=== PATIENT | male | born 1980 | race Two or more races ===

== ENCOUNTER 2020-01-08 09:43 | Emergency (ER) | payer OTHER ==
[~2020-01-08] VITALS: Ht 162.6 cm; Wt 122.8 kg
[~2020-01-08 09:43] MED LIST: AMLO-150 PO; METO50TA82 PO
[2020-01-08 10:18] VITALS: BP 150/105
[2020-01-08] MEDS ORDERED: ACETAMINOPHEN 500 MG TABLET ONE (11:09)
--- NOTE | 2020-01-08 11:15 | NUR ---
pt hit foot on wall while barefoot at home with pain 4th and 5th digits and wound between toes. medicated for pain. pt foot soaking in soapy water
[2020-01-08] MEDS ORDERED: NEOSPORIN OINT. PKT 1 PACKET ONE (11:22)
[2020-01-08] MEDS ORDERED: ACETAMINOPHEN 500 MG TABLET PO ONE (11:30)
--- NOTE | 2020-01-08 11:45 | NUR ---
TECH CLEANED WOUNDS AND NEOSPORIN AND BANDAIDS APPLIED. ADDITIONALLY PROVIDED A BOOT. AMBULATED TO DISCHARGE WINDOW, STEADY GAIT
== END 2020-01-08 12:53 | disposition home or self-care (01) ==
LOC: ED 12:32
DX: S92.511A Displaced fracture of proximal phalanx of right lesser toe(s), initial encounter for closed fracture (principal); I10 Essential (primary) hypertension; F17.200 Nicotine dependence, unspecified, uncomplicated; W22.8XXA Striking against or struck by other objects, initial encounter; Y93.89 Activity, other specified; Y92.009 Unspecified place in unspecified non-institutional (private) residence as the place of occurrence of the external cause; Y99.8 Other external cause status
CPT/HCPCS: 99283